=== PATIENT | male | born 1975 | race Caucasian/White ===

== ENCOUNTER 2018-06-22 08:57 | Emergency (ER) | payer OTHER ==
[~2018-06-22] VITALS: Ht 175.3 cm; Wt 72.6 kg
[2018-06-22] MEDS ORDERED: KEFLEX500 M1 PO (09:56)
[2018-06-22] MEDS ORDERED: MEDROLDOSEPACK PO (09:56)
[2018-06-22] MEDS ORDERED: PEPCID20 MG PO (09:56)
[2018-06-22 10:12] VITALS: BP 180/104
--- NOTE | 2018-06-23 09:37 | EKG ---
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: [place] : 1975 Requested By: Elijah Ybarra Order Number: [id number] Reading MD: Joao Farias Measurements Intervals [place] Rate: 94 P: 77 VT: 138 QRS: 63 QRSD: 86 T: 70 QT: 332 QTc: 416 Interpretive Statements Sinus rhythm Probable left atrial enlargement Anteroseptal infarct, age indeterminate Baseline wander in lead(s) V2 No previous ECG available for comparison Electronically Signed On 06-23-2018 9:37:40 CDT by Joao Farias [email or web address] <ELECTRONICALLY SIGNED> By: Joao Farias MD, [facility] 08/936 1 1 Joao Farias MD, [facility] /EPI
== END 2018-06-22 10:13 | disposition home or self-care (01) ==
LOC: M.ERS 08:57
DX: T63.441A Toxic effect of venom of bees, accidental (unintentional), initial encounter (principal); Y92.89 Other specified places as the place of occurrence of the external cause; L08.9 Local infection of the skin and subcutaneous tissue, unspecified; Z85.3 Personal history of malignant neoplasm of breast; F17.210 Nicotine dependence, cigarettes, uncomplicated

== ENCOUNTER 2019-10-16 15:40 | Emergency (ER) | payer OTHER ==
[~2019-10-16] VITALS: Ht 175.3 cm; Wt 77.1 kg
[~2019-10-16 15:40] MED LIST: KEFLEX500 M1 PO; MEDROLDOSEPACK PO; PEPCID20 MG PO
[2019-10-16 16:23] LABS: ABSOLUTE BASOPHILS 0.1 thou/uL (0.0-0.2); ABSOLUTE EOSINOPHILS 0.2 thou/uL (0.0-0.7); ABSOLUTE LYMPHOCYTES 2.8 thou/uL (0.8-5.3); ABSOLUTE MONOCYTES 0.9 thou/uL (0.0-1.2); ABSOLUTE NEUTROPHILS 5.7 thou/uL (1.6-8.1); BASOPHILS 1.2 %; EOSINOPHILS 2.3 %; HEMATOCRIT 57.1 % (42.0-52.0); LYMPHOCYTES 28.7 %; MCH 31.7 pg (26.0-34.0); MCV 90.5 fL (80.0-100.0); MONOCYTES 9.1 %; MPV 8.5 fl. (7.2-11.1); NUCLEATED RBCS 0 /100WBC; PLATELET COUNT* 307 thou/uL (150-400); POLYS 58.7 %; RBC 6.31 mil/uL (4.50-6.00); RDW-CV 13.5 % (10.5-14.5); WBC 9.8 thou/uL (4.0-11.0)
[2019-10-16 16:32] LABS: CALCIUM 11.1 mg/dL (8.5-10.1); CREATININE 1.4 mg/dL (0.6-1.3); POTASSIUM 3.7 mmol/L (3.5-5.1)
[2019-10-16 16:36] LABS: ALBUMIN 4.1 g/dL (3.4-5.0); TOTAL BILIRUBIN 0.5 mg/dL (<0.1-1.0); TOTAL PROTEIN 8.5 g/dL (6.4-8.2)
[2019-10-16 17:47] LABS: URINE BILIRUBIN NEGATIVE (Negative); URINE BLOOD NEGATIVE (Negative); URINE CLARITY CLEAR; URINE COLOR YELLOW; URINE GLUCOSE-RANDOM NEGATIVE (Negative); URINE KETONES NEGATIVE (Negative); URINE LEUKOCYTES-REFLEX NEGATIVE (Negative); URINE NITRITE-REFLEX NEGATIVE (Negative); URINE PROTEIN NEGATIVE (Negative); URINE SPECIFIC GRAVITY 1.015 (1.005-1.030); URINE UROBILINOGEN 0.2 E.U./dl (0.2-1.0)
[2019-10-16] MEDS ORDERED: VENTOLIN HFA 1818 GM INH (17:59)
[2019-10-16] MEDS ORDERED: PREDNISONE50 MG PO (17:59)
[2019-10-16] MEDS ORDERED: LEVAQUIN 750 M750 MG PO (17:59)
[2019-10-16 18:17] VITALS: BP 142/94
== END 2019-10-16 18:19 | disposition home or self-care (01) ==
LOC: M.ERS 15:40
PROVIDERS: Nurse Practitioner Family
DX: S29.012A Strain of muscle and tendon of back wall of thorax, initial encounter (principal); J18.9 Pneumonia, unspecified organism; R19.7 Diarrhea, unspecified; F17.210 Nicotine dependence, cigarettes, uncomplicated; Z85.3 Personal history of malignant neoplasm of breast; X58.XXXA Exposure to other specified factors, initial encounter; Y92.89 Other specified places as the place of occurrence of the external cause; Y93.89 Activity, other specified; Y99.8 Other external cause status

== ENCOUNTER 2019-11-06 19:47 | Emergency (ER) | payer OTHER ==
[~2019-11-06] VITALS: Ht 175.3 cm; Wt 77.1 kg
[~2019-11-06 19:47] MED LIST changes: +LEVAQUIN 750 M750 MG PO; +PREDNISONE50 MG PO; +VENTOLIN HFA 1818 GM INH
[2019-11-06 20:11] LABS: URINE BILIRUBIN NEGATIVE (Negative); URINE BLOOD NEGATIVE (Negative); URINE CLARITY CLEAR; URINE COLOR YELLOW; URINE GLUCOSE-RANDOM NEGATIVE (Negative); URINE KETONES NEGATIVE (Negative); URINE LEUKOCYTES NEGATIVE (Negative); URINE NITRITE NEGATIVE (Negative); URINE PROTEIN NEGATIVE (Negative); URINE SPECIFIC GRAVITY 1.025 (1.005-1.030); URINE UROBILINOGEN 0.2 E.U./dl (0.2-1.0)
[2019-11-06 20:29] LABS: ABSOLUTE BASOPHILS 0.1 thou/uL (0.0-0.2); ABSOLUTE EOSINOPHILS 0.1 thou/uL (0.0-0.7); ABSOLUTE LYMPHOCYTES 1.5 thou/uL (0.8-5.3); ABSOLUTE MONOCYTES 0.4 thou/uL (0.0-1.2); ABSOLUTE NEUTROPHILS 8.2 thou/uL (1.6-8.1); HEMATOCRIT 49.7 % (42.0-52.0); HEMOGLOBIN 17.7 gm/dL (14.0-18.0); LYMPHOCYTES 14.1 %; MCH 32.1 pg (26.0-34.0); MCHC 35.6 g/dL (28.0-37.0); MCV 90.2 fL (80.0-100.0); MONOCYTES 4.3 %; MPV 8.4 fl. (7.2-11.1); NUCLEATED RBCS 0 /100WBC; PLATELET COUNT* 326 thou/uL (150-400); POLYS 79.6 %; RDW-CV 13.6 % (10.5-14.5); WBC 10.4 thou/uL (4.0-11.0)
[2019-11-06 20:38] LABS: CALCIUM 10.4 mg/dL (8.5-10.1); CREATININE 1.5 mg/dL (0.6-1.3); POTASSIUM 4.3 mmol/L (3.5-5.1)
[2019-11-06 20:42] LABS: ALBUMIN 3.8 g/dL (3.4-5.0); MAGNESIUM 1.6 mg/dL (1.8-2.4); TOTAL BILIRUBIN 0.3 mg/dL (<0.1-1.0); TOTAL PROTEIN 7.9 g/dL (6.4-8.2)
[2019-11-06] MEDS ORDERED: ZOFRAN ODT4 MG DISSOLVE (23:01)
[2019-11-06 23:50] VITALS: BP 144/88
--- NOTE | 2019-11-07 10:05 | EKG ---
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: [place] : 1975 Requested By: Emelina Gore Order Number: [id number] MD: Carlos Weir Measurements Intervals [place] Rate: 58 P: -19 AR: 134 QRS: 46 QRSD: 94 T: 43 QT: 390 QTc: 384 Interpretive Statements Sinus rhythm RSR' in V1 or V2, right VCD or RVH Minimal ST elevation, anterior leads Compared to ECG 06/22/2018 09:02:56 rate has slowed Electronically Signed On 11-07-2019 10:04:42 COLLEGE DIRECTOR by Carlos Weir [email or web address] <ELECTRONICALLY SIGNED> By: Carlos Weir MD, [facility] 11/07/19 1004 15 15 Carlos Weir MD, [facility] /EPI
== END 2019-11-06 23:51 | disposition home or self-care (01) ==
LOC: M.ERS 19:47
PROVIDERS: Physician Assistant
DX: R11.2 Nausea with vomiting, unspecified (principal); F17.210 Nicotine dependence, cigarettes, uncomplicated; Z85.3 Personal history of malignant neoplasm of breast

== ENCOUNTER 2020-02-06 00:42 | Emergency (ER) | payer OTHER ==
[~2020-02-06] VITALS: Ht 175.3 cm; Wt 79.4 kg
[~2020-02-06 00:42] MED LIST changes: +ZOFRAN ODT4 MG DISSOLVE
[2020-02-06 01:01] LABS: URINE BILIRUBIN NEGATIVE (Negative); URINE BLOOD 1+ (Negative); URINE CLARITY CLEAR; URINE COLOR YELLOW; URINE GLUCOSE-RANDOM NEGATIVE (Negative); URINE KETONES NEGATIVE (Negative); URINE LEUKOCYTES-REFLEX NEGATIVE (Negative); URINE NITRITE-REFLEX NEGATIVE (Negative); URINE PROTEIN NEGATIVE (Negative); URINE UROBILINOGEN 0.2 E.U./dl (0.2-1.0)
[2020-02-06 01:08] LABS: SQUAMOUS 0-3 Few /LPF (0-3); URINE WBC-REFLEX 0-5 Rare /HPF (0-5)
[2020-02-06 01:09] LABS: CRYSTALS None Seen /LPF (None Seen); FINE GRANULAR CASTS 0-3 Few /LPF (None Seen); HYALINE CASTS 0-3 Few /LPF (None Seen); MUCUS 4-6 Moderate strn/LPF (None Seen)
[2020-02-06 01:12] LABS: ABSOLUTE BASOPHILS 0.1 thou/uL (0.0-0.2); ABSOLUTE EOSINOPHILS 0.3 thou/uL (0.0-0.7); ABSOLUTE LYMPHOCYTES 2.9 thou/uL (0.8-5.3); ABSOLUTE MONOCYTES 1.2 thou/uL (0.0-1.2); ABSOLUTE NEUTROPHILS 6.7 thou/uL (1.6-8.1); BASOPHILS 1.3 %; EOSINOPHILS 2.6 %; HEMATOCRIT 50.3 % (42.0-52.0); HEMOGLOBIN 17.7 gm/dL (14.0-18.0); MCH 31.6 pg (26.0-34.0); MCHC 35.2 g/dL (28.0-37.0); MCV 89.9 fL (80.0-100.0); MONOCYTES 10.6 %; MPV 8.5 fl. (7.2-11.1); NUCLEATED RBCS 0 /100WBC; PLATELET COUNT* 268 thou/uL (150-400); POLYS 59.5 %; RDW-CV 14.4 % (10.5-14.5); WBC 11.2 thou/uL (4.0-11.0)
[2020-02-06 01:20] LABS: CALCIUM 8.5 mg/dL (8.5-10.1); CREATININE 1.2 mg/dL (0.6-1.3)
[2020-02-06 01:25] LABS: ALBUMIN 3.8 g/dL (3.4-5.0); TOTAL BILIRUBIN 0.3 mg/dL (<0.1-1.0); TOTAL PROTEIN 7.4 g/dL (6.4-8.2)
[2020-02-06] MEDS ORDERED: FLOMAX0.4 MG PO (02:54)
[2020-02-06] MEDS ORDERED: HYDROCODON-ACE1 EAC8 PO (02:54)
[2020-02-06 03:41] VITALS: BP 164/108
== END 2020-02-06 03:43 | disposition home or self-care (01) ==
LOC: M.ERS 00:42
PROVIDERS: Emergency Medicine
DX: N20.1 Calculus of ureter (principal); F17.210 Nicotine dependence, cigarettes, uncomplicated; Z85.3 Personal history of malignant neoplasm of breast

== ENCOUNTER 2020-03-01 20:57 | Emergency (ER) | payer OTHER ==
[~2020-03-01] VITALS: Ht 175.3 cm; Wt 74.8 kg
[~2020-03-01 20:57] MED LIST changes: +FLOMAX0.4 MG PO; +HYDROCODON-ACE1 EAC8 PO
[2020-03-01 21:26] LABS: URINE BILIRUBIN 1+ (Negative); URINE BLOOD 3+ (Negative); URINE CLARITY CLEAR; URINE COLOR YELLOW; URINE GLUCOSE-RANDOM NEGATIVE (Negative); URINE KETONES TRACE (Negative); URINE LEUKOCYTES-REFLEX NEGATIVE (Negative); URINE NITRITE-REFLEX NEGATIVE (Negative); URINE PROTEIN TRACE (Negative); URINE SPECIFIC GRAVITY >= 1.030 (1.005-1.030); URINE UROBILINOGEN 0.2 E.U./dl (0.2-1.0)
[2020-03-01 21:28] LABS: ABSOLUTE BASOPHILS 0.1 thou/uL (0.0-0.2); ABSOLUTE EOSINOPHILS 0.2 thou/uL (0.0-0.7); ABSOLUTE LYMPHOCYTES 2.4 thou/uL (0.8-5.3); ABSOLUTE MONOCYTES 0.9 thou/uL (0.0-1.2); ABSOLUTE NEUTROPHILS 9.9 thou/uL (1.6-8.1); EOSINOPHILS 1.6 %; HEMATOCRIT 51.7 % (42.0-52.0); HEMOGLOBIN 18.3 gm/dL (14.0-18.0); LYMPHOCYTES 17.6 %; MCH 31.6 pg (26.0-34.0); MCHC 35.4 g/dL (28.0-37.0); MCV 89.5 fL (80.0-100.0); MONOCYTES 6.4 %; MPV 8.2 fl. (7.2-11.1); NUCLEATED RBCS 0 /100WBC; PLATELET COUNT* 315 thou/uL (150-400); POLYS 73.4 %; RBC 5.78 mil/uL (4.50-6.00); RDW-CV 14.7 % (10.5-14.5); WBC 13.5 thou/uL (4.0-11.0)
[2020-03-01 21:30] LABS: ICTOTEST (BILI CONFIRMATORY) Negative (Negative)
[2020-03-01 21:36] LABS: CALCIUM 9.6 mg/dL (8.5-10.1); CREATININE 1.4 mg/dL (0.6-1.3); POTASSIUM 3.7 mmol/L (3.5-5.1)
[2020-03-01 21:38] LABS: CRYSTALS None Seen /LPF (None Seen); HYALINE CASTS 4-10 Moderate /LPF (None Seen); MUCUS >6 Heavy strn/LPF (None Seen); SQUAMOUS 0-3 Few /LPF (0-3); URINE WBC-REFLEX 0-5 Rare /HPF (0-5)
[2020-03-01 21:40] LABS: ALBUMIN 4.4 g/dL (3.4-5.0); TOTAL BILIRUBIN 0.5 mg/dL (<0.1-1.0); TOTAL PROTEIN 8.5 g/dL (6.4-8.2)
[2020-03-01] MEDS ORDERED: PERCOCET 5-3251 EACH PO (22:48)
[2020-03-01] MEDS ORDERED: CIPROFLOXACIN500 M1 PO (22:48)
[2020-03-01] MEDS ORDERED: FLOMAX0.4 MG PO (22:48)
[2020-03-01 23:25] VITALS: BP 175/89
== END 2020-03-01 23:26 | disposition home or self-care (01) ==
LOC: M.ERS 20:57
PROVIDERS: Family Medicine
DX: N20.0 Calculus of kidney (principal); R11.2 Nausea with vomiting, unspecified; I10 Essential (primary) hypertension; F17.210 Nicotine dependence, cigarettes, uncomplicated; Z87.442 Personal history of urinary calculi

== ENCOUNTER 2020-03-12 01:08 | Emergency (ER) | payer OTHER ==
[~2020-03-12] VITALS: Ht 175.3 cm; Wt 74.8 kg
[~2020-03-12 01:08] MED LIST changes: +CIPROFLOXACIN500 M1 PO; +PERCOCET 5-3251 EACH PO
[2020-03-12 01:37] LABS: ABSOLUTE BASOPHILS 0.2 thou/uL (0.0-0.2); ABSOLUTE EOSINOPHILS 0.2 thou/uL (0.0-0.7); ABSOLUTE LYMPHOCYTES 2.1 thou/uL (0.8-5.3); BASOPHILS 1.1 %; EOSINOPHILS 1.2 %; HEMOGLOBIN 18.2 gm/dL (14.0-18.0); LYMPHOCYTES 14.7 %; MCH 31.8 pg (26.0-34.0); MCHC 35.1 g/dL (28.0-37.0); MCV 90.8 fL (80.0-100.0); MONOCYTES 6.7 %; NUCLEATED RBCS 0 /100WBC; PLATELET COUNT* 308 thou/uL (150-400); POLYS 76.3 %; RBC 5.73 mil/uL (4.50-6.00); RDW-CV 14.6 % (10.5-14.5); WBC 14.4 thou/uL (4.0-11.0)
[2020-03-12 01:38] LABS: CALCIUM 9.5 mg/dL (8.5-10.1); CREATININE 1.7 mg/dL (0.6-1.3); POTASSIUM 4.6 mmol/L (3.5-5.1)
[2020-03-12 02:28] LABS: URINE BILIRUBIN NEGATIVE (Negative); URINE CLARITY CLEAR; URINE COLOR ORANGE; URINE GLUCOSE-RANDOM TRACE (Negative); URINE KETONES TRACE (Negative); URINE LEUKOCYTES-REFLEX NEGATIVE (Negative); URINE SPECIFIC GRAVITY 1.025 (1.005-1.030)
[2020-03-12 02:45] LABS: URINE BLOOD ND (Negative); URINE NITRITE-REFLEX ND (Negative); URINE PROTEIN ND (Negative)
[2020-03-12 02:46] LABS: URINE UROBILINOGEN ND E.U./dl (0.2-1.0)
[2020-03-12 02:54] LABS: ACETEST (KETONE CONFIRMATORY) Negative (Negative); URINE REDUCING SUBSTANCE NEGATIVE (Negative)
[2020-03-12 03:10] LABS: SQUAMOUS 0-3 Few /LPF (0-3); WBC CASTS 0-3 /LPF
[2020-03-12 03:11] LABS: URINE WBC-REFLEX 6-15 Few /HPF (0-5)
[2020-03-12 03:12] LABS: CRYSTALS None Seen /LPF (None Seen); URINE RBC 3-10 Few /HPF (0-2)
[2020-03-12 04:44] VITALS: BP 165/93
--- NOTE | 2020-03-13 14:18 | EKG ---
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: [place] : 1975 Requested By: Tata Glover Order Number: [id number] MD: Joseph Vasquez Measurements Intervals [place] Rate: 95 P: 53 AK: 142 QRS: 45 QRSD: 90 T: 57 QT: 345 QTc: 434 Interpretive Statements Sinus rhythm S1,S2,S3 pattern RSR' in V1 or V2, right VCD or RVH Compared to ECG 11/06/2019 20:16:31 ST (T wave) deviation no longer present Electronically Signed On 03-13-2020 14:16:56 CDT by Joseph Vasquez [email or web address] <ELECTRONICALLY SIGNED> By: Joseph Vasquez MD, [facility] 03/13/20 1416 0118 0118 Joseph Vasquez MD, [facility] /EPI
== END 2020-03-12 04:35 | disposition short-term general hospital (02) ==
LOC: M.ERS 01:08
PROVIDERS: Emergency Medicine
DX: N20.1 Calculus of ureter (principal); I10 Essential (primary) hypertension; F17.210 Nicotine dependence, cigarettes, uncomplicated; Z87.442 Personal history of urinary calculi

== ENCOUNTER 2020-04-15 22:49 | Emergency (ER) | payer OTHER ==
[~2020-04-15] VITALS: Ht 175.3 cm; Wt 79.4 kg
[2020-04-16] MEDS ORDERED: HYDROCODON-ACE1 EAC8 PO (00:15)
[2020-04-16 00:21] VITALS: BP 193/105
== END 2020-04-16 00:21 | disposition home or self-care (01) ==
LOC: M.ERS 22:49
DX: S93.491A Sprain of other ligament of right ankle, initial encounter (principal); F17.210 Nicotine dependence, cigarettes, uncomplicated; I10 Essential (primary) hypertension; Z87.442 Personal history of urinary calculi; X50.1XXA Overexertion from prolonged static or awkward postures, initial encounter; Y93.89 Activity, other specified; Y92.34 Swimming pool (public) as the place of occurrence of the external cause; Y99.9 Unspecified external cause status